=== PATIENT | male | born 1970 | race Caucasian/White ===

== ENCOUNTER 2018-07-01 15:12 | Emergency (ER) | payer SELFPAY ==
[2018-07-01] MEDS ORDERED: ASPIRIN 81 MG CHEW PO ONE (15:15)
[2018-07-01] MEDS ORDERED: OMEP-125 PO (15:41)
[2018-07-01] MEDS ORDERED: HYDR-2966 PO (15:41)
[2018-07-01] MEDS ORDERED: AMLO-113 PO (15:41)
[2018-07-01] MEDS ORDERED: [UNRECOGNIZED DRUG - CODE] (15:41)
--- NOTE | 2018-07-01 16:00 | ER Report ---
History and Physical Time Seen By MD: 15:15 Hx. of Stated Complaint: PT FROM [place], HERE FOR HUNTING. DRANK A BIT LAST NIGHJT AND NOTED CHEST PRESSURE AND PAIN IN l BICEP AT 7 THIS AM. , WAS INTERMITTANTLY SOB INITIALLY. WENT TO SEE [facility] AND WAS EVALUATED. HAD A NEGATIVE TROP AND DDIMER, HPI/ROS CHIEF COMPLAINT: Chest pain HISTORY OF PRESENT ILLNESS: Patient is a 47-year-old male who is here from [facility] and was up in the [facility] camping was having several beers in the evening without the smile at 7:00 with some chest pressure [place] is a history of GERD he's had this symptom before this time he had a little bit associated dizziness within no shortness of breath no abdominal pain no nausea no vomiting no diarrhea patient is lactose intolerance that he some pumpkin bread last night swathing semiofficial contribute factor II and patient on arrival here is currently pain free he was seen at outside facility several hours from here was evaluated had negative troponins negative cardiac markers negative d-dimer EKG was nonspecific however due to the fact they have no business segment manager they sent him here for emergent follow-up evaluation arrival here. He is currently pain-free and has no additional complaints noted REVIEW OF SYSTEMS: Respiratory: No cough, no dyspnea. Cardiovascular: Had chest pain Gastrointestinal: No vomiting, no abdominal pain. Musculoskeletal: No back pain. Remainder of the 14 system rev: Yes Allergies: Coded Allergies: meperidine (Verified Allergy, Unknown, 07/01/18) Home Meds Reported Medications Simethicone (Simethicone) 125 Mg Capsule 07/01/18 Omeprazole (OMEPRAZOLE) 20 Mg Capsule.dr, 1 CAP PO QDAY, CAP 07/01/18 Hydrochlorothiazide (HYDROCHLOROTHIAZIDE) 25 Mg Tablet, 1 TAB PO QDAY, TAB 07/01/18 Amlodipine Besylate (AMLODIPINE BESYLATE) 10 Mg Tablet, 1 TAB PO QDAY, TAB 07/01/18 Reviewed Nurses Notes: Yes Old Medical Records Reviewed: Yes Hx Substance Use Disorder: No Constitutional Vital Sign - Last 24 Hours 07/01/18 07/01/18 15:21 15:30 Temp 98.6 Pulse 86 Resp 16 B/P (MAP) 152/106 Pulse Ox 89 O2 Delivery Room Air O2 Flow Rate 2.0 Physical Exam General Appearance: The patient is alert, has no immediate need for airway protection and no current signs of toxicity. [ ] Eyes: Pupils equal and round no injection. Respiratory: Chest is non tender, lungs are clear to auscultation. Cardiac: regular rate and rhythm [ ] Gastrointestinal: Abdomen is soft and non tender, no masses, bowel sounds normal. Musculoskeletal: Neck: Neck is supple and non tender. Extremities have full range of motion and are non tender. Skin: No rashes or lesions. [ ] DIFFERENTIAL DIAGNOSIS: After history and physical exam differential diagnosis was considered for acute myocardial infarction coronary ischemia pulmonary emboli altitude illness alcohol-induced gastritis Medical Decision Making Data Points Result Diagram: 07/01/18 1553 07/01/18 1553 Laboratory Hematology Test 07/01/18 15:53 Red Blood Count 5.12 M/uL (4.00-5.60) Mean Corpuscular Volume 91.3 fL (80.0-96.0) Mean Corpuscular Hemoglobin 31.4 pg (26.0-33.0) Mean Corpuscular Hemoglobin Concent 34.4 g/dL (32.0-36.0) Red Cell Distribution Width 14.8 % (11.5-14.5) Mean Platelet Volume 10.1 fL (7.2-11.1) Neutrophils (%) (Auto) 63.0 % (39.4-72.5) Lymphocytes (%) (Auto) 22.0 % (17.6-49.6) Monocytes (%) (Auto) 12.1 % (4.1-12.4) Eosinophils (%) (Auto) 1.4 % (0.4-6.7) Basophils (%) (Auto) 1.5 % (0.3-1.4) Nucleated RBC Relative Count (auto) 0.0 /100WBC Neutrophils # (Auto) 4.7 K/uL (2.0-7.4) Lymphocytes # (Auto) 1.6 K/uL (1.3-3.6) Monocytes # (Auto) 0.9 K/uL (0.3-1.0) Eosinophils # (Auto) 0.1 K/uL (0.0-0.5) Basophils # (Auto) 0.1 K/uL (0.0-0.1) Nucleated RBC Absolute Count (auto) 0.00 K/uL D-Dimer Quantitative (PE/DVT) 0.34 ug/ml (0-0.50) Sodium Level 137 mmol/L (137-145) Potassium Level 3.1 mmol/L (3.5-5.0) Chloride Level 100 mmol/L (98-107) Carbon Dioxide Level 25 mmol/L (22-30) Blood Urea Nitrogen 11 mg/dl (9-21) Creatinine 0.80 mg/dl (0.66-1.25) Glomerular Filtration Rate Calc > 60.0 Random Glucose 107 mg/dl (75-110) Calcium Level 8.9 mg/dl (8.4-10.2) Total Bilirubin 0.7 mg/dl (0.2-1.3) Aspartate Amino Transf (AST/SGOT) 51 U/L (0-35) Alanine Aminotransferase (ALT/SGPT) 76 U/L (0-56) Alkaline Phosphatase 90 U/L (0-126) Troponin I < 0.012 ng/ml Total Protein 7.2 g/dl (6.3-8.2) Albumin 4.1 g/dl (3.5-5.0) Serum Alcohol < 10 mg/dl Chemistry Test 07/01/18 15:53 White Blood Count 7.4 k/uL (4.5-11.0) Red Blood Count 5.12 M/uL (4.00-5.60) Hemoglobin 16.1 g/dL (14.0-18.0) Hematocrit 46.7 % (42.0-52.0) Mean Corpuscular Volume 91.3 fL (80.0-96.0) Mean Corpuscular Hemoglobin 31.4 pg (26.0-33.0) Mean Corpuscular Hemoglobin Concent 34.4 g/dL (32.0-36.0) Red Cell Distribution Width 14.8 % (11.5-14.5) Platelet Count 193 K/uL (150-450) Mean Platelet Volume 10.1 fL (7.2-11.1) Neutrophils (%) (Auto) 63.0 % (39.4-72.5) Lymphocytes (%) (Auto) 22.0 % (17.6-49.6) Monocytes (%) (Auto) 12.1 % (4.1-12.4) Eosinophils (%) (Auto) 1.4 % (0.4-6.7) Basophils (%) (Auto) 1.5 % (0.3-1.4) Nucleated RBC Relative Count (auto) 0.0 /100WBC Neutrophils # (Auto) 4.7 K/uL (2.0-7.4) Lymphocytes # (Auto) 1.6 K/uL (1.3-3.6) Monocytes # (Auto) 0.9 K/uL (0.3-1.0) Eosinophils # (Auto) 0.1 K/uL (0.0-0.5) Basophils # (Auto) 0.1 K/uL (0.0-0.1) Nucleated RBC Absolute Count (auto) 0.00 K/uL D-Dimer Quantitative (PE/DVT) 0.34 ug/ml (0-0.50) Glomerular Filtration Rate Calc > 60.0 Calcium Level 8.9 mg/dl (8.4-10.2) Total Bilirubin 0.7 mg/dl (0.2-1.3) Aspartate Amino Transf (AST/SGOT) 51 U/L (0-35) Alanine Aminotransferase (ALT/SGPT) 76 U/L (0-56) Alkaline Phosphatase 90 U/L (0-126) Troponin I < 0.012 ng/ml Total Protein 7.2 g/dl (6.3-8.2) Albumin 4.1 g/dl (3.5-5.0) Serum Alcohol < 10 mg/dl Coagulation Test 07/01/18 15:53 D-Dimer Quantitative (PE/DVT) 0.34 ug/ml Toxicology Test 07/01/18 15:53 Serum Alcohol < 10 mg/dl ED Course/Re-evaluation ED Course ED clinical course 47 year old male brought here for chest discomfort he was seen at outside facility had his troponins and cardiac markers performed he is currently pain-free and arrival here his cardiac markers and enzymes here are negative EKG chest x-ray d-dimer also negative patient is completely asymptomatic I believe this is his GERD which she described as being consistent with his particulars discomfort combining that with his altitude inexperience probably help to facilitate that the dizziness as well I don't see any indication for admission at this time he has no cardiac history is troponin markers were the last 6 hours of both negative 2 I believe he is safe for discharge and follow-up with primary care diagnosis will be gastroesophageal reflux disorder Decision to Disposition Date: Jul 01, 2018 Decision to Disposition Time: 16:41 Depart Departure Latest Vital Signs Vital Signs Date Time Temp Pulse Resp B/P (MAP) Pulse Ox O2 Delivery O2 Flow Rate FiO2 07/01/18 15:30 2.0 07/01/18 15:21 98.6 86 16 152/106 89 Room Air Impression: Primary Impression: GERD (gastroesophageal reflux disease) Condition: Improved Disposition: HOME OR SELF-CARE Referrals: CHICHO MORROW 5 Days Patient Instructions: Gastroesophageal Reflux Disease (DC) SEDA BLACKWELL MD Jul 01, 2018 16:00
[2018-07-01 16:07] LABS: PLATELET COUNT, AUTOMATED 193 K/uL (150-450)
--- NOTE | 2018-07-01 16:18 | RADIOLOGY IMAGING REPORT ---
FACILITY: [facility] PATIENT NAME: Alexandro Lamas : 1970 MR: [id number] V: [id number] EXAM DATE: ORDERING PHYSICIAN: SEDA BLACKWELL TECHNOLOGIST: Location: [facility] Patient: Alexandro Lamas : 1970 Visit/Account:[id number] Date of Sevice: 07/01/2018 Exam type: CHEST PA AND LAT History: Chest pain while hunting Comparison: None. Findings: The lungs are free of acute effusions, infiltrates or edema. There is no evidence of a pneumothorax or pneumomediastinum. The cardiac silhouette is normal in size. The trachea is in midline. IMPRESSION: 1. No acute cardiac pulmonary process is seen Report Dictated By: Christi Heart MD at 07/01/2018 4:13 PM Report E-Signed By: Christi Heart MD at 07/01/2018 4:14 PM WSN:[id number]
--- NOTE | 2018-07-01 16:24 | EKG ---
FACILITY: [facility] - [place] PATIENT NAME: JOURDAN BLAKE : [id number] MR: [id number] V: [id number] EXAM DATE: ORDERING PHYSICIAN: SEDA BLACKWELL TECHNOLOGIST: HALIE Test Reason : CP Blood Pressure : / mmHG Vent. Rate : 087 BPM Atrial Rate : 087 BPM P-R Int : 194 ms QRS Dur : 116 ms QT Int : 426 ms P-R-T Axes : 055 004 052 degrees QTc Int : 512 ms Normal sinus rhythm Prolonged QT No ST-T abnormalities Confirmed by CULLEN RADER ([id number]) on 07/01/2018 6:56:22 PM Referred By: ROSALVA Confirmed By:CULLEN RADER
[2018-07-01 16:30] VITALS: BP 146/84
== END 2018-07-01 16:50 | disposition home or self-care (01) ==
LOC: ER 15:30
DX: K21.9 Gastro-esophageal reflux disease without esophagitis (principal)
CPT/HCPCS: 36415; 71046; 80305; 80320; 82040; 82247; 82310; 82374; 82435; 82565; 82947; 84075; 84132; 84155; 84295; 84450; 84460; 84484; 84520; 85025; 85379; 93005; 99284